=== PATIENT | female | born 1965 | race Caucasian/White ===

== ENCOUNTER 2018-11-06 23:03 | Emergency (ER) | payer OTHER ==
[~2018-11-06] VITALS: Ht 162.6 cm; Wt 93.0 kg
[~2018-11-06 23:03] MED LIST: CIPR500 PO; CITA20 PO; CRUTCH4 USE; HYDACE5 PO; IBUP600 PO; SILSUL1TC TOP
[2018-11-07 00:58] LABS: BASOPHILS ABSOLUTE AUTO 0.03 K/mm3 (0.00-0.23); BASOPHILS PERCENT AUTO 0 % (0-2); EOSINOPHILS ABSOLUTE AUTO 0.11 K/mm3 (0.00-0.68); EOSINOPHILS PERCENT AUTO 1 % (0-6); Hematocrit 46.7 % (33.0-51.0); Hemoglobin 15.4 g/dL (11.5-16.0); IMMATURE GRAN ABSOLUTE AUTO 0.05 K/mm3 (0.00-0.10); IMMATURE GRAN PERCENT AUTO 0 % (0-1); LYMPHOCYTES PERCENT AUTO 16 % (21-46); MONOCYTES ABSOLUTE AUTO 0.91 K/mm3 (0.16-1.47); MONOCYTES PERCENT AUTO 7 % (4-13); Mean Corpuscular HGB 29.3 pg (26.0-34.0); Mean Corpuscular Volume 89 fL (80-100); Mean Platelet Volume 9.7 fL (9.1-12.4); NEUTROPHILS ABSOLUTE AUTO 9.44 K/mm3 (1.96-9.15); NEUTROPHILS PERCENT AUTO 75 % (41-73); Platelet Count 327 K/mm3 (150-400); RDW Coefficient Variation 13.8 % (11.7-14.2); RDW Standard Deviation 44.7 fL (35.1-46.3); Red Blood Cell Count 5.26 M/mm3 (3.80-5.20); White Blood Cell Count 12.54 K/mm3 (4.00-11.30)
[2018-11-07 01:18] LABS: Alanine Aminotransfer (ALT/SGP 39 U/L (12-78); Albumin, Blood 3.8 g/dL (3.4-5.0); Albumin/Globulin Ratio 0.8 (0.8-1.8); Alk Phos 88 U/L (50-136); Anion Gap 9 mmol/L (6-16); Aspartate Aminotrans (AST/SGOT 16 U/L (12-37); Bilirubin, Total 1.5 mg/dL (0.1-1.0); Blood Urea Nitrogen 8 mg/dL (8-24); Bun/Creatinine Ratio 10.8 (12.0-20.0); CO2, Blood 24 mmol/L (21-32); Calcium, Blood 9.1 mg/dL (8.5-10.1); Chloride, Blood 104 mmol/L (98-108); Creatinine, Blood 0.74 mg/dL (0.40-1.00); Glomerular Filtration Rate >60 (60-); Glucose, Blood 98 mg/dL (70-99); Potassium, Blood 3.7 mmol/L (3.5-5.5); Sodium, Blood 137 mmol/L (136-145); Total Protein, Blood 8.8 g/dL (6.4-8.2)
[2018-11-07] MEDS ORDERED: Augmentin 500-1 EACH PO (02:55)
[2018-11-07] MEDS ORDERED: Norco 5-325 Ta1 EACH PO (02:55)
== END 2018-11-07 03:42 | disposition home or self-care (01) ==
LOC: ER 23:03
PROVIDERS: Emergency Medicine
DX: K57.32 Diverticulitis of large intestine without perforation or abscess without bleeding (principal); F17.200 Nicotine dependence, unspecified, uncomplicated; Z91.048 Other nonmedicinal substance allergy status; Z79.899 Other long term (current) drug therapy
CPT/HCPCS: 72193; 80053; 83690; 85025; 96365; 96375; 99284; J1170; J2405; J2543; J7030; Q9967

== ENCOUNTER → 2019-03-06 | Outpatient (CLI) | payer OTHER ==
[~2019-03-06] MED LIST changes: +Augmentin 500-1 EACH PO; +Norco 5-325 Ta1 EACH PO
== END ==
LOC: LAB SHORT 09:40 → LAB 09:40
PROVIDERS: Physician Assistant
DX: Z01.419 Encounter for gynecological examination (general) (routine) without abnormal findings (principal)
CPT/HCPCS: G0123

== ENCOUNTER 2021-05-28 05:21 | Day surgery (SDC) | payer OTHER ==
--- NOTE | 2021-05-28 07:15 | NUR ---
[facility] ADMISSIONS REPRESENTATIVE IMPLANTED L 3RD INTERCOSTAL SPACE. PT TOLERATED PROCEDURE WELL.
[2021-05-28] MEDS ORDERED: ALBU90OI INH (07:30)
[2021-05-28] MEDS ORDERED: OMEP20ER PO (07:31)
--- NOTE | 2021-05-28 07:51 | NUR ---
PT VERBALIZED UNDERSTANDING OF WRITTEN AND VERBAL D/C INST. PT AMB OUT OF THE HRT CENTER /S ANY DIFFICULTY.
== END 2021-05-28 23:22 | disposition home or self-care (01) ==
LOC: MHTC 05:21
DX: R55 Syncope and collapse (principal); E66.9 Obesity, unspecified; Z68.41 Body mass index [BMI] 40.0-44.9, adult
CPT/HCPCS: 33285; C1764

== ENCOUNTER → 2022-05-03 | Outpatient (CLI) | payer OTHER ==
[~2022-05-03] MED LIST changes: +ALBU90OI INH; +OMEP20ER PO
[2022-05-03 16:54] LABS: BASOPHILS ABSOLUTE AUTO 0.05 K/mm3 (0.00-0.23); BASOPHILS PERCENT AUTO 1 % (0-2); EOSINOPHILS ABSOLUTE AUTO 0.25 K/mm3 (0.00-0.68); EOSINOPHILS PERCENT AUTO 3 % (0-6); Hematocrit 47.4 % (33.0-51.0); Hemoglobin 15.7 g/dL (11.5-16.0); IMMATURE GRAN ABSOLUTE AUTO 0.07 K/mm3 (0.00-0.10); IMMATURE GRAN PERCENT AUTO 1 % (0-1); LYMPHOCYTES ABSOLUTE AUTO 2.55 K/mm3 (0.84-5.20); LYMPHOCYTES PERCENT AUTO 28 % (21-46); MONOCYTES ABSOLUTE AUTO 0.52 K/mm3 (0.16-1.47); MONOCYTES PERCENT AUTO 6 % (4-13); Mean Corpuscular HGB 29.3 pg (26.0-34.0); Mean Corpuscular HGB Conc 33.1 g/dL (31.5-36.5); Mean Corpuscular Volume 89 fL (80-100); NEUTROPHILS ABSOLUTE AUTO 5.61 K/mm3 (1.96-9.15); NEUTROPHILS PERCENT AUTO 62 % (41-73); Platelet Count 300 K/mm3 (150-400); RDW Coefficient Variation 14.6 % (11.7-14.2); RDW Standard Deviation 46.3 fL (35.1-46.3); Red Blood Cell Count 5.35 M/mm3 (3.80-5.20); White Blood Cell Count 9.05 K/mm3 (4.00-11.30)
[2022-05-03 16:59] LABS: Bun/Creatinine Ratio 10.3 (12.0-20.0); Calcium, Blood 9.1 mg/dL (8.5-10.1); Creatinine, Blood 0.87 mg/dL (0.40-1.00); Potassium, Blood 3.5 mmol/L (3.5-5.5)
== END | disposition home or self-care (01) ==
LOC: LAB 16:49 → LAB SHORT 16:49
PROVIDERS: Family Medicine
DX: R07.9 Chest pain, unspecified (principal); R06.09 Other forms of dyspnea
CPT/HCPCS: 80048; 83880; 84484; 85025; 85379

== ENCOUNTER → 2022-10-02 | Outpatient (CLI) | payer OTHER ==
[2022-10-02 14:17] LABS: Alanine Aminotransfer (ALT/SGP 69 U/L (12-78); Alk Phos 86 U/L (50-136); Anion Gap 5 mmol/L (6-16); Aspartate Aminotrans (AST/SGOT 33 U/L (12-37); Bilirubin, Total 0.8 mg/dL (0.1-1.0); Blood Urea Nitrogen 9 mg/dL (8-24); Bun/Creatinine Ratio 13.3 (12.0-20.0); CHOL/HDL RATIO 4.5; CO2, Blood 26 mmol/L (21-32); Calcium, Blood 9.3 mg/dL (8.5-10.1); Chloride, Blood 110 mmol/L (98-108); Cholesterol 165 mg/dL (50-200); Creatinine, Blood 0.68 mg/dL (0.40-1.00); Globulin, Blood 4.2 g/dL (2.2-4.0); Glomerular Filtration Rate 102 (60-); Glucose, Blood 115 mg/dL (70-99); HDL Cholesterol 37 mg/dL (>39); LDL/HDL RATIO 3.2; Low Density Lipoprotein Chol 117 mg/dL (0-110); Potassium, Blood 3.5 mmol/L (3.5-5.5); Sodium, Blood 141 mmol/L (136-145); Total Protein, Blood 8.2 g/dL (6.4-8.2); Triglycerides 56 mg/dL (30-160); Very Low Density Lipoprot Chol 11 mg/dL (6-32)
== END | disposition home or self-care (01) ==
LOC: LAB 09:36 → LAB SHORT 09:36
PROVIDERS: Family Medicine
DX: Z13.6 Encounter for screening for cardiovascular disorders (principal)
CPT/HCPCS: 80053; 80061

== ENCOUNTER 2023-01-23 10:19 | Day surgery (SDC) | payer OTHER ==
[2023-01-25] MEDS ORDERED: Phentermine HCl15 MG PO (12:13)
== END 2023-01-31 22:42 | disposition home or self-care (01) ==
LOC: MOI US 10:19
DX: C50.211 Malignant neoplasm of upper-inner quadrant of right female breast (principal)
CPT/HCPCS: 19285; 77065; A4648

== ENCOUNTER 2023-01-27 08:48 | Day surgery (SDC) | payer OTHER ==
[~2023-01-27] VITALS: Ht 162.6 cm; Wt 95.6 kg
[~2023-01-27 08:48] MED LIST changes: +Phentermine HCl15 MG PO
[2023-01-27 09:59] VITALS: BP 132/97
--- NOTE | 2023-01-27 10:11 | NUR ---
Ambulatory in Day Surgery Patient confirms NPO status and agrees with scheduled surgery. Pre-Op teaching done. Pt verbalizes understanding. History, Chart, Medications and Allergies reviewed before start of procedure.Patient States Post-Procedure ride home has been arranged.
[2023-01-27 14:48] VITALS: BP 122/85
[2023-01-27 15:07] VITALS: BP 130/86
[2023-01-27 15:15] VITALS: BP 124/78
[2023-01-27 15:30] VITALS: BP 131/86
[2023-01-27 15:45] VITALS: BP 115/77
--- NOTE | 2023-01-27 16:12 | NUR ---
SITE C/D/I. BREAST BINDER IN PLACE. PT REPORTS PAIN TOLERABLE, TOLERATING PO, READY TO GO HOME. Patient up to Ambulate independently. Gait steady. Discharge instructions reviewed with patient. Patient verbalizes understanding. Copy given to patient to take home, WELL FAMILY. Patient States Post-Procedure ride home has been arranged. Discharged via wheelchair to private car for ride home.
== END 2023-01-27 16:12 | disposition home or self-care (01) ==
LOC: ORSCMMR 08:48 → NM 08:48 → ORSCMMR 08:49 → NM 09:30 → ORSCMMR 16:12
PROVIDERS: Surgery
PROC: 07B50ZX Excision of Right Axillary Lymphatic, Open Approach, Diagnostic (ICD-10-PCS; principal; 2023-01-27 12:00)
PROC: 0HBT0ZZ Excision of Right Breast, Open Approach (ICD-10-PCS; principal; 2023-01-27 12:00)
DX: C50.211 Malignant neoplasm of upper-inner quadrant of right female breast (principal); C77.3 Secondary and unspecified malignant neoplasm of axilla and upper limb lymph nodes; J45.909 Unspecified asthma, uncomplicated; E66.9 Obesity, unspecified; Z68.36 Body mass index [BMI] 36.0-36.9, adult; K21.9 Gastro-esophageal reflux disease without esophagitis; Z86.718 Personal history of other venous thrombosis and embolism; Z79.899 Other long term (current) drug therapy
CPT/HCPCS: 38792; 76098; 88307; 88341; 88342; A9270; A9520; J0690; J1100; J2250; J2405; J2704; J3010; J7120; Q9968

== ENCOUNTER → 2023-03-07 | Outpatient (CLI) | payer OTHER ==
[2023-03-14 16:25] LABS: HPV GENOTYPE 16 Not Detected; HPV GENOTYPE 18 Not Detected; HPV HIGH RISK Not Detected; HPV SOURCE Vaginal
== END | disposition home or self-care (01) ==
LOC: LAB 10:06 → LAB SHORT 10:06
PROVIDERS: Obstetrics & Gynecology
DX: Z01.419 Encounter for gynecological examination (general) (routine) without abnormal findings (principal)
CPT/HCPCS: 87624; G0123

== ENCOUNTER → 2023-03-09 | Outpatient (CLI) | payer OTHER | LOC: LAB 07:53 → LAB SHORT 07:53 | DX: D49.0 Neoplasm of unspecified behavior of digestive system (principal) | CPT/HCPCS: 88305; 88341; 88342 ==

== ENCOUNTER 2023-04-07 05:36 | Inpatient (IN) | payer OTHER ==
[2023-04-07] VITALS (25 sets, daily range): BP systolic 109–161; BP diastolic 66–104
[~2023-04-07] VITALS: Ht 162.6 cm; Wt 98.0 kg
[2023-04-07] MEDS ORDERED: Lactated Ringer's 1,000 ML IV SCH ×2 (06:30→12:25)
[2023-04-07] MEDS ORDERED: CeFAZolin Sodium 2,000 MG in NS 50 ML IV SCH (06:30)
[2023-04-07] MEDS ORDERED: FentaNYL Citrate 50 MCG/ML 2 ML Injection ONE ×4 (06:49→13:03)
[2023-04-07] MEDS ORDERED: propofoL 20 ML IV ONE (06:49)
[2023-04-07] MEDS ORDERED: Sugammadex Sodium 200 MG/2ML SDV (100 MG/ML) ONE (06:50)
[2023-04-07] MEDS ORDERED: Dexamethasone Sod Phos 10 MG/ML 1ML VIAL ONE (06:50)
[2023-04-07] MEDS ORDERED: Rocuronium Bromide 10 MG/ML 5ML Injection IV ONE ×2 (06:50→08:18)
[2023-04-07] MEDS ORDERED: Ondansetron HCl 2 MG / ML 2ML Vial ONE (06:50)
[2023-04-07] MEDS ORDERED: Lidocaine HCl 2% 20 ML MDV ONE (06:50)
[2023-04-07] MEDS ORDERED: Ketorolac Tromethamine 30mg Vial ONE (06:50)
--- NOTE | 2023-04-07 06:52 | NUR ---
PATIENT WOULD LIKE TO TAKE PYRIDIUM ORDERED, DESPITE NAUSEA/VOMITING REACTION TO ACETAMINOPHEN.
[2023-04-07] MEDS ORDERED: Ondansetron HCl 2 MG / ML 2ML Vial IV PRN ×2 (06:55→12:25)
[2023-04-07] MEDS ORDERED: FentaNYL Citrate 50 MCG/ML 2 ML Injection IV PRN ×3 (07:00)
[2023-04-07] MEDS ORDERED: Lidocaine HCl 1% 5 ML SYR INJ ONE (07:00)
[2023-04-07] MEDS ORDERED: HYDROmorphone HCl/Pf 1MG SYR IV PRN ×2 (07:00→12:30)
[2023-04-07] MEDS ORDERED: Midazolam HCl 1MG / ML 2ML Vial IV PRN (07:00)
[2023-04-07] MEDS ORDERED: Droperidol 5 mg/2 ml Vial IV PRN (07:00)
[2023-04-07] MEDS ORDERED: Metoclopramide HCl 5MG / ML 2ML Vial IV PRN ×2 (07:00→12:25)
[2023-04-07] MEDS ORDERED: Bupivacaine 0.5% HCl 5 MG/ML 30MLVIAL ONE (07:18)
--- NOTE | 2023-04-07 08:49 | NUR ---
MARCOS, FROM BLOOD BANK, INQUIRED ABOUT BLOOD DRAW PROCESS FROM THIS RN IN RELATION TO TYPE AND SCREEN DRAWN THIS AM. PATIENT WAS IDENTIFIED BY CONFIRMING ARMBAND NAME AND BIRTHDATE AND BLOOD TUBE LABLED ACCORDINGLY BY THIS RN. OF NOTE, THIS RN DID REVIEW PHOTO ID SCANNED INTO THIS PATIENT'S MEDICAL RECORD, AND THIS RN CAN CONFIRM LIKELESS IS SIMILAR/SAME TO PATIENT.
[2023-04-07] MEDS ORDERED: HYDROmorphone HCl/Pf 1MG SYR ONE (09:05)
[2023-04-07] MEDS ORDERED: Phenylephrine HCl 100 MCG/ML-NS 10MLSYR (1MG/10ML) ONE (11:42)
[2023-04-07] MEDS ORDERED: DiphenhydrAMINE HCL 25 MG Cap PO PRN (12:25)
[2023-04-07] MEDS ORDERED: OxyCODONE HCL 5 MG TAB PO PRN (12:25)
[2023-04-07] MEDS ORDERED: Naloxone HCl 0.4MG / ML 1ML Vial IV PRN (12:25)
[2023-04-07] MEDS ORDERED: Polyethylene Glycol 3350 17 gm PO PRN (12:25)
[2023-04-07] MEDS ORDERED: Simethicone 80 MG Chew PO PRN (12:30)
[2023-04-07] MEDS ORDERED: FLU VACC QS2023-24(6MOS UP)/PF 60 MCG/0.5 ML SYRINGE IM SCH (12:30)
[2023-04-07] MEDS ORDERED: Albuterol HFA200 ACT/6.7 GM INH INH PRN (12:45)
--- NOTE | 2023-04-07 13:44 | NUR ---
PATIENT ARRIVED FROM PACU TODAY. POD 0 TOTAL ABD HYSTER PATIENT IS DROWSY BUT ANSWERS QUESTIONS APPROPRIATELY. PATIENT DENIES PAIN AT THIS TIME. SHE HAS X1 ABD TRANSVERSE INCISION WITH MEDIPORE DRESSING WITH A SMALL AMOUNT OF BLOOD BUT IS OTHERWISE INTACT. HER VENCES IS DRAINING PER GRAVITY WITH NO KINKS IN TUBING. SHE IS TOLERATING SMALL AMOUNTS OF PO INTAKE AT THIS TIME. SHE IS CURRENTLY LAYING IN BED WITH CALL LIGHT IN REACH.
--- NOTE | 2023-04-07 15:30 | NUR ---
Pt. is awake in bed when she welcomes my visit. Family members are at bedside. Pt. displayed evidence of post-op discomfort. Facilitated a life review and listened with empathy and a calming presence. Asked guided questions about naz. Pt. displayed evidence of being comforted. Prayed with Pt. Pt. verbalized gratitude for the spiritual care visit.
--- NOTE | 2023-04-07 15:40 | NUR ---
SHIFT SUMMARY: POD 0 TOTAL ABD HYSTER PATIENT IS A&OX4. PATIENT IS ON 3L NC WITH >90% OXYGEN SATS OTHERWISE VS ARE WNL. PAIN IS MANAGED SO FAR THIS SHIFT WITH PO OXY AND SIMETHICONE. HER ABD TRANSVERSE INCISION HAS A SMALL AMOUNT OF BLOOD ON IT BUT IS INTACT. DENIES NAUSEA OR VOMITING AT THIS TIME. SHE IS TOLERATING SMALL AMOUNTS OF PO INTAKE. VENCES IS DRAINING PER GRAVITY WITH NO KINKS IN TUBING. PATIENT IS LAYING IN BED WITH FAMILY AT BEDSIDE AND CALL LIGHT IN REACH.
[2023-04-07] MEDS ORDERED: Ketorolac Tromethamine 30mg Vial IV SCH (18:00)
[2023-04-08 03:50] LABS: BASOPHILS ABSOLUTE AUTO 0.02 K/mm3 (0.00-0.23); BASOPHILS PERCENT AUTO 0 % (0-2); EOSINOPHILS PERCENT AUTO 0 % (0-6); Hematocrit 36.1 % (33.0-51.0); IMMATURE GRAN ABSOLUTE AUTO 0.04 K/mm3 (0.00-0.10); IMMATURE GRAN PERCENT AUTO 0 % (0-1); LYMPHOCYTES ABSOLUTE AUTO 1.54 K/mm3 (0.84-5.20); LYMPHOCYTES PERCENT AUTO 11 % (21-46); MONOCYTES PERCENT AUTO 9 % (4-13); Mean Corpuscular HGB 29.4 pg (26.0-34.0); Mean Corpuscular HGB Conc 33.2 g/dL (31.5-36.5); Mean Corpuscular Volume 89 fL (80-100); Mean Platelet Volume 9.5 fL (9.1-12.4); NEUTROPHILS ABSOLUTE AUTO 10.85 K/mm3 (1.96-9.15); NEUTROPHILS PERCENT AUTO 80 % (41-73); Platelet Count 259 K/mm3 (150-400); RDW Standard Deviation 45.1 fL (35.1-46.3); Red Blood Cell Count 4.08 M/mm3 (3.80-5.20); White Blood Cell Count 13.65 K/mm3 (4.00-11.30)
[2023-04-08 04:11] VITALS: BP 99/61
[2023-04-08] MEDS ORDERED: Omeprazole 20 MG CapCR PO SCH (06:00)
[2023-04-08 07:23] VITALS: BP 104/62
--- NOTE | 2023-04-08 07:58 | NUR ---
SHIFT SUMMARY POD 1 TOTAL ABD HYSTR. NO ACUTE CHANGES OVERNIGHT. VS WNL FOR PT. TRANSVERSE MEDIPORE C/D/I, SMALL SANG DRAINAGE ON R SIDE. NO DRAINAGE NOTED IN JAGRUTI AREA. TOLERATING ORALS. VENCES D/C'd, AWAITING FIRST VOID. PT AMBULATING c SBA. PT REPORTS PAIN TOLERABLE, MEDICATED PER EMAR. ANTICIPATED DISCHARGE HOME. CALL LIGHT WITHIN REACH, BED IN LOWEST POSITION, REPORT GIVEN TO DAY RN.
[2023-04-08] MEDS ORDERED: Citalopram Hydrobromide 10 MG TAB PO SCH (09:00)
[2023-04-08] MEDS ORDERED: Enoxaparin 40 MG/0.4 ML SYR SC SCH (09:00)
[2023-04-08] MEDS ORDERED: Ibuprofen 400 MG Tab PO PRN (12:00)
[2023-04-08 15:19] VITALS: BP 103/71
--- NOTE | 2023-04-08 16:38 | NUR ---
SHIFT SUMMARY PT IS POD#1 FROM TOTAL ABD HYSTER WITH DR. CORMIER. PAIN MANAGED WITH PO PAIN MEDICATION, PT HAS REDUCED THE AMOUNT OF PAIN MEDICATION T/O THE DAY. PT HAS BEEN AMBULATING IN THE [place]. PT DENIES PASSING FLATUS. MIRALAX GIVEN FOR BOWEL CARE. ABD BINDER PROVIDED FOR COMFORT WHEN OOB.
[2023-04-08 22:00] VITALS: BP 102/62
[2023-04-09 04:59] VITALS: BP 102/59
[2023-04-09 07:28] VITALS: BP 110/65
[2023-04-09] MEDS ORDERED: OXYC5 PO (11:32)
[2023-04-09] MEDS ORDERED: IBUP800 PO (11:32)
[2023-04-09] MEDS ORDERED: MIRALAX17 GM PO (11:33)
[2023-04-09] MEDS ORDERED: SIME80CH PO (11:33)
[2023-04-09 11:34] VITALS: BP 114/64
--- NOTE | 2023-04-09 11:53 | NUR ---
DISCHARGE PT PROVIDED WITH WRITTEN AND VERBAL DISCHARGE INSTRUCTIONS, SHE REPORTED UNDERSTANDING. PAIN MANAGED AT TIME OF DISCHARGE. VSS WITHIN 1 HOUR OF DISCHARGE. PT AMBULATED OUT INDEPENDENTLY.
--- NOTE | 2023-04-09 12:00 | NUR ---
PT STATES SHE ALREADY HAS HER PRESCRIPTIONS FILLED AND AT HOME. SHE STATES ELIQUIS IS READY AT THE PHARMACY, DR. SONG STATED PT SHOULD TAKE ELIQUIS PRESCRIBED.
== END 2023-04-09 11:50 | disposition home or self-care (01) | DRG 743 ==
LOC: MEDS 05:36 → PRE IP 07:30 → SURS 13:33
PROVIDERS: ADMIT Obstetrics & Gynecology
PROC: 0UT70ZZ Resection of Bilateral Fallopian Tubes, Open Approach (ICD-10-PCS; 2023-04-07)
PROC: 0UT90ZZ Resection of Uterus, Open Approach (ICD-10-PCS; principal; 2023-04-07 07:30)
PROC: 0UT20ZZ Resection of Bilateral Ovaries, Open Approach (ICD-10-PCS; 2023-04-07 07:30)
DX: D25.2 Subserosal leiomyoma of uterus (principal); C50.911 Malignant neoplasm of unspecified site of right female breast; F41.9 Anxiety disorder, unspecified; F32.A Depression, unspecified; K21.9 Gastro-esophageal reflux disease without esophagitis; E66.9 Obesity, unspecified; J45.909 Unspecified asthma, uncomplicated; Z88.5 Allergy status to narcotic agent; Z88.8 Allergy status to other drugs, medicaments and biological substances; Z68.37 Body mass index [BMI] 37.0-37.9, adult
CPT/HCPCS: 36415; 85025; 86850; 86900; 86901; 88307; 94760; 94762; A9270; J0690; J1100; J1170; J1650; J1885; J2250; J2371; J2405; J2704; J3010; J7120

== ENCOUNTER → 2024-02-15 | Outpatient (CLI) | payer OTHER ==
[~2024-02-15] MED LIST changes: +IBUP800 PO; +MIRALAX17 GM PO; +OXYC5 PO; +SIME80CH PO
[2024-02-16 22:30] LABS: CYCLIC CITRULLINATED PEP,IGG/A 10 Units (0-19)
== END ==
LOC: LAB SHORT 10:32 → LAB 10:32
PROVIDERS: Internal Medicine Rheumatology
DX: M25.50 Pain in unspecified joint (principal)
CPT/HCPCS: 86200